=== PATIENT | female | born 2000 | race Caucasian/White ===

== ENCOUNTER → 2021-05-05 | Outpatient (CLI) | payer BC ==
--- NOTE | 2021-05-05 12:49 | RAD ---
XR FOOT_RIGHT 3 VIEWS 05/05/2021 9:55 AM INDICATION: Bunionectomy COMPARISON: None available. TECHNIQUE: 3 views of the right foot are provided. FINDINGS/ IMPRESSION: There is a single screw transfixing the distal fifth metatarsal. No significant regional soft tissue swelling or subcutaneous gas. No osseous erosion. No acute fracture or dislocation. Electronically signed by: Stefany Perkins MD (05/05/2021 12:46 PM) [id number]
== END ==
LOC: RAD 09:51
PROVIDERS: ATTEND Podiatrist
DX: M79.671 Pain in right foot (principal)
CPT/HCPCS: 73630

== ENCOUNTER → 2021-05-30 | Outpatient (CLI) | payer BC ==
--- NOTE | 2021-05-30 15:58 | RAD ---
EXAM: Right foot, 3 views. HISTORY: Bunion removal. COMPARISON: 05/05/2021. FINDINGS: 3 views of the right foot are obtained. There has been no significant interval change in os teotomy changes and associated fixation screw within the distal fifth metatarsal. There is no new fra cture, dislocation or subluxation. IMPRESSION: Stable postoperative changes involving the distal fifth metatarsal. Electronically signed by: Shy Modi MD (05/30/2021 3:56 PM) [id number]
== END ==
LOC: RAD 15:14
PROVIDERS: ATTEND Podiatrist
DX: M79.671 Pain in right foot (principal); Z98.890 Other specified postprocedural states
CPT/HCPCS: 73630

== ENCOUNTER → 2021-08-01 | Outpatient (CLI) | payer BC ==
--- NOTE | 2021-08-01 15:51 | RAD ---
Exam: XR FOOT_RIGHT 3 VIEWS History: Follow-up foot surgery. Comparison: 04/23/2021 Findings: There are postsurgical features from distal fifth metatarsal osteotomy with screw fixation. Stable al ignment compared to postoperative exam, no evidence of screw loosening or complication. No acute frac ture or dislocation. No significant degenerative changes. Soft tissues are unremarkable. Impression: 1. Stable postsurgical changes from fifth metatarsal osteotomy and screw fixation. Electronically signed by: Huseyin Gonzalez MD (08/01/2021 3:49 PM) [id number]
== END ==
LOC: RAD 14:25
PROVIDERS: ATTEND Podiatrist
DX: M79.671 Pain in right foot (principal)
CPT/HCPCS: 73630